=== PATIENT | female | born 1985 | race Caucasian/White ===

== ENCOUNTER 2016-09-28 15:05 | Emergency (ER) | payer SELFPAY ==
[2016-09-28 15:13] VITALS: TEMP 98.4; BMI 35.8
[2016-09-28 15:25] LABS: AUTOMATED BASOPHIL 0.5 % (0-2); AUTOMATED EOSINOPHIL 3.2 % (0-5); AUTOMATED LYMPH 29.5 % (17-44); AUTOMATED MONOCYTE 5.8 % (3-10); MPV 6.8 fL (7.4-10.4)
[2016-09-28 15:31] LABS: LEUKOCYTES/URINE NEG (NEGATIVE); NITRITE/URINE NEG (NEGATIVE); RBC/URINE 0-2 (0-5); URINE OCCULT BLOOD NEG (NEG/TRACE); WBC/URINE 0-2 (0-5)
[2016-09-28 15:41] LABS: BLOOD UREA NITROGEN 10 MG/DL (7-17); CALCIUM 9.8 MG/DL (8.4-10.2); CALCULATED OSMOLALITY 268 MOs/Kg (270-290); CHLORIDE 104 mEq/L (98-107); GLUCOSE 115 MG/DL (70-99); SODIUM LEVEL 139 mEq/L (137-146); TOTAL PROTEIN 7.7 G/DL (6.3-8.2)
[2016-09-28] MEDS ORDERED: ONDANSETRON HCL 4 MG/2 ML VIAL IV ONE (16:56)
[2016-09-28] MEDS ORDERED: MORPHINE 4 MG/ML INJECTION IV ONE (16:56)
[2016-09-28] MEDS ORDERED: NS 1,000 ML IV ONE (16:56)
--- NOTE | 2016-09-28 17:09 | EDPRACDOC ---
- General Information Chief Complaint: Abdominal Pain Stated Complaint: RT UPPER ABD PAIN NAUSEATED Time Seen by Provider: 09/28/16 16:28 Information Source: Patient Mode Of Arrival: Car Home Medications: Home Medications Aspirin/Acetaminophen/Caffeine [Excedrin Migraine Caplet] 1 - 2 tab PO Q6-8H PRN 09/28/16 Oxycodone HCl/Acetaminophen [Percocet 5-325 mg Tablet] 1 tab PO Q4-6H PRN #20 tab 09/28/16 Promethazine [Phenergan] 25 mg PO Q6-8H PRN #20 tab 09/28/16 Allergies/Adverse Reactions: Allergies Allergy/AdvReac Type Severity Reaction Status Date / Time azithromycin [From Zithromax] Allergy vomiting Verified 03/01/16 14:25 levofloxacin [From Levaquin] Allergy Irregular Verified 03/01/16 14:25 Heartbeat Penicillins Allergy Hives* Verified 03/01/16 14:25 - 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 SHE STATES THE PAIN RADIATES TO MID ABDOMEN AND TO HER BACK. STATES SHE HAS NOT EATEN ALOT IN THE PAST 24 HOURS. PT HAS NOT HAD ANY PAST ABDOMINAL SURGERIES. DENIES FEVER, CHILLS OR DIARRHEA Pain Location: Reports: RUQ Pain Context: Reports: Spontaneous Pain Severity: Moderate Pain Quality: Reports: Sharp, Stabbing Pain Radiation: Reports: Back Last Menstrual Period: Sep 21 : No Adult Abdominal History: Denies: Abdominal Surgery, Urolithiasis, Bowel Obstruction, Similar Pain (dx) Female Abdominal History: Denies: Abdominal Surgery, UTI, Ectopic, PID, Urolithiasis, Similar Pain (dx) Modifying Factors: improves with: Nothing Female Associated Signs & Symptoms: Reports: Nausea Oral Intake: Decreased Urinary Output: Normal ED Past Medical History - History Reviewed Yes Nurses notes reviewed and agree except as marked - Patient Medical History Psychological History: Denies: Depression Systemic History: Denies: Cancer Surgical History: Denies: Hysterectomy - Social Medical History Smoking Status: Heavy tobacco smoker (5 or more cigarettes/day or daily pipe/ cigar) EDM Review of Systems - Review of Systems ROS Negative Except as Marked: Yes All systems reviewed and were negative except as marked - Physical Exam Constitutional: Alert (Awake) Oriented to: Time, Person, Place Last recorded Vital Signs: Last Vital Signs Temp 98.4 F 09/28/16 15:10 Pulse 81 09/28/16 17:12 Resp 18 09/28/16 17:12 BP 115/70 09/28/16 17:12 Pulse Ox 97 09/28/16 17:12 Oxygen Pulse Oxygen Saturation 97 O2 Device Room Air Oxygen Flow Rate Fraction of Inspired Oxygen ( FIO2) - HEENT Head: Normal ( normocephalic) Eye Exam: Normal (PERRL, EOMI, Sclera white) Oropharynx: Normal (Pharynx:Moist without exudate,Gums-no swelling) Nose: No Symptoms Reported (septum midline) Neck: Normal (FROM, trachea at midline) HEENT Comment: PT HAS DIMPLING TO HER RIGHT BREAST, AT THE NINE O'CLOCK POSITION. GLANDULAR NODULE FELT, NON-PAINFUL, NON-MOBILE. - Respiratory/Cardiovascular Respiratory: Normal - CTA (BBS clear to auscultation without adventitious sounds ) Cardiovascular: Normal (RRR without murmur, gallop or rub) - GI Auscultation: Normal (NABS) Palpation: Normal (Soft,No rebound or guarding, non distended) Tenderness: Moderate, RUQ Beck's Sign: Negative Rectal Exam: Deferred - Musculoskeletal Back: Normal (Non-Tender) Extremities: Normal (Normal tone, Pulses 2+ No cyanosis or edema, FROM) - Integumentary Skin: Normal, Warm, Dry Lymphatics: Normal (no adenopathy) - Neurologic Memory Impaired: Normal Motor Function: Normal (Normal tone, Pulses 2+ No cyanosis or edema, FROM) Cranial Nerve: Normal (CN II-X11 intact sensation, strength 5/5) Cerebellar: Normal Mood Description: Normal Perception: Normal - Differential Diagnosis Cholecystitis, Cholelithiasis, Other - Results All Results Reviewed and Normal except as Highlighted below: Yes 09/28/16 15:11 09/28/16 15:11 WBC 8.5 xk/uL (3.8-10.8) 09/28/16 15:11 RBC 4.75 xM/uL (4.20-5.40) 09/28/16 15:11 Hgb 15.4 g/dL (12.0-16.0) 09/28/16 15:11 Hct 44.8 % (36-47) 09/28/16 15:11 MCV 95 fL (81-99) 09/28/16 15:11 MCH 32.4 pg (27-32) H 09/28/16 15:11 MCHC 34.3 g/dl (33-36) 09/28/16 15:11 RDW 13.0 % (11.5-14.5) 09/28/16 15:11 Plt Count 322 xk/uL (130-400) 09/28/16 15:11 MPV 6.8 fL (7.4-10.4) L 09/28/16 15:11 Neut % (Auto) 61.0 % (45-76) 09/28/16 15:11 Lymph % (Auto) 29.5 % (17-44) 09/28/16 15:11 [place] % (Auto) 5.8 % (3-10) 09/28/16 15:11 Eos % (Auto) 3.2 % (0-5) 09/28/16 15:11 Baso % (Auto) 0.5 % (0-2) 09/28/16 15:11 Absolute Neuts (auto) 5.19 xk/uL (1.7-8.2) 09/28/16 15:11 Absolute Lymphs (auto) 2.47 xk/uL (0.65-4.75) 09/28/16 15:11 Sodium 139 mEq/L (137-146) 09/28/16 15:11 Potassium 4.1 mEq/L (3.5-5.1) 09/28/16 15:11 Chloride 104 mEq/L (98-107) 09/28/16 15:11 Carbon Dioxide 23 mMOL/L (22-33) 09/28/16 15:11 Anion Gap 16 mEq/L (8-16) 09/28/16 15:11 BUN 10 MG/DL (7-17) 09/28/16 15:11 Creatinine 0.60 MG/DL (0.52-1.04) 09/28/16 15:11 Estimated GFR (MDRD) > 60 mL/min (>=60) 09/28/16 15:11 Glucose 115 MG/DL (70-99) H 09/28/16 15:11 Calculated Osmolality 268 MOs/Kg (270-290) L 09/28/16 15:11 Calcium 9.8 MG/DL (8.4-10.2) 09/28/16 15:11 Total Bilirubin 0.4 MG/DL (0.2-1.3) 09/28/16 15:11 AST 32 IU/L (14-36) 09/28/16 15:11 ALT 50 IU/L (9-52) 09/28/16 15:11 Alkaline Phosphatase 71 IU/L (38-126) 09/28/16 15:11 Total Protein 7.7 G/DL (6.3-8.2) 09/28/16 15:11 Albumin 4.5 G/DL (3.5-5.0) 09/28/16 15:11 Lipase 124 U/L (23-300) 09/28/16 15:11 Urine Color Yellow 09/28/16 15:13 Urine Clarity Sl hzy 09/28/16 15:13 Urine pH 5.0 (5.0-8.0) 09/28/16 15:13 Ur Specific [place] 1.010 (1.003-1.035) 09/28/16 15:13 Urine Protein Neg (NEG/TRACE) 09/28/16 15:13 Urine Glucose (UA) Neg (NEGATIVE) 09/28/16 15:13 Urine Ketones Neg (NEGATIVE) 09/28/16 15:13 Urine Occult Blood Neg (NEG/TRACE) 09/28/16 15:13 Urine Nitrite Neg (NEGATIVE) 09/28/16 15:13 Urine Bilirubin Neg (NEGATIVE) 09/28/16 15:13 Urine Urobilinogen <2.0 MG/DL (0-1) 09/28/16 15:13 Ur Leukocyte Esterase Neg (NEGATIVE) 09/28/16 15:13 Urine RBC 0-2 (0-5) 09/28/16 15:13 Urine WBC 0-2 (0-5) 09/28/16 15:13 Ur Epithelial Cells 3+ 09/28/16 15:13 Urine Bacteria Few (NEG/FEW) 09/28/16 15:13 Urine Mucus Mod (NEG/OCC) H 09/28/16 15:13 Urine Test Neg (NEGATIVE) 09/28/16 15:13 Lab Results 09/28/16 09/28/16 09/28/16 15:13 15:13 15:11 WBC 8.5 RBC 4.75 Hgb 15.4 Hct 44.8 MCV 95 MCH 32.4 H MCHC 34.3 RDW 13.0 Plt Count 322 MPV 6.8 L Neut % (Auto) 61.0 Lymph % (Auto) 29.5 [place] % (Auto) 5.8 Eos % (Auto) 3.2 Baso % (Auto) 0.5 Absolute Neuts (auto) 5.19 Absolute Lymphs (auto) 2.47 Sodium Potassium Chloride Carbon Dioxide Anion Gap BUN Creatinine Estimated GFR (MDRD) Glucose Calculated Osmolality Calcium Total Bilirubin AST ALT Alkaline Phosphatase Total Protein Albumin Lipase Urine Color Yellow Urine Clarity Sl hzy Urine pH 5.0 Ur Specific [place] 1.010 Urine Protein Neg Urine Glucose (UA) Neg Urine Ketones Neg Urine Occult Blood Neg Urine Nitrite Neg Urine Bilirubin Neg Urine Urobilinogen <2.0 Ur Leukocyte Esterase Neg Urine RBC 0-2 Urine WBC 0-2 Ur Epithelial Cells 3+ Urine Bacteria Few Urine Mucus Mod H Urine Test Neg 09/28/16 15:11 WBC RBC Hgb Hct MCV MCH MCHC RDW Plt Count MPV Neut % (Auto) Lymph % (Auto) [place] % (Auto) Eos % (Auto) Baso % (Auto) Absolute Neuts (auto) Absolute Lymphs (auto) Sodium 139 Potassium 4.1 Chloride 104 Carbon Dioxide 23 Anion Gap 16 BUN 10 Creatinine 0.60 Estimated GFR (MDRD) > 60 Glucose 115 H Calculated Osmolality 268 L Calcium 9.8 Total Bilirubin 0.4 AST 32 ALT 50 Alkaline Phosphatase 71 Total Protein 7.7 Albumin 4.5 Lipase 124 Urine Color Urine Clarity Urine pH Ur Specific [place] Urine Protein Urine Glucose (UA) Urine Ketones Urine Occult Blood Urine Nitrite Urine Bilirubin Urine Urobilinogen Ur Leukocyte Esterase Urine RBC Urine WBC Ur Epithelial Cells Urine Bacteria Urine Mucus Urine Test Decision Time to Discharge: 18:03 - Departure Disposition: Home Condition: Stable Final Diagnosis: Breast mass, right, Abdominal pain Instructions: Acute Abdominal Pain (ED), Breast Mass (ED), Abdominal Pain in Women Education/Counseling Given To: Patient Education/Counseling Given Regarding: Diagnosis, Treatment, Prognosis, Follow Up Referrals: Zoran Parry MD [Primary Care Provider] [facility] Prescriptions: Oxycodone HCl/Acetaminophen [Percocet 5-325 mg Tablet] 1 tab PO Q4-6H PRN #20 tab PRN Reason: Pain Promethazine [Phenergan] 25 mg PO Q6-8H PRN #20 tab PRN Reason: Nausea/Vomiting Additional Instructions: Drink sips of Gatorade every 2-3 minutes while awake. Do NOT drink large volumes of fluid at once. If you vomit, take the nausea-vomiting medicine prescribed, wait ~ 30 minutes, and restart the sipping process. Return to the Emergency Department if you think you are getting dehydrated, have persistent abdominal pain that is unrelenting, have worse or different symptoms, or any concerns. PLEASE MAKE A FOLLOW UP APPOINTMENT WITH PCP. RETURN TO THE ED FOR WORSENING SYMPTOMS OR CONCERNS
[2016-09-28] MEDS ORDERED: IBUPROFEN 800 MG TAB PO ONE (17:20)
--- NOTE | 2016-09-28 17:53 | DIRPT ---
CLINICAL DATA: Right upper quadrant pain for 2 days. EXAM: US ABDOMEN LIMITED - RIGHT UPPER QUADRANT COMPARISON: None. FINDINGS: Gallbladder: No gallstones or wall thickening visualized. No sonographic Beck sign noted by flyer maker. Common bile duct: Diameter: 2 mm, within normal limits. Liver: No focal lesion identified. Within normal limits in parenchymal echogenicity. IMPRESSION: Negative. Electronically Signed By: Kiet Wynn M.D. On: 09/28/2016 17:50
[2016-09-28 18:28] VITALS: BP 104/54; PULSE 85
== END 2016-09-28 18:56 | disposition home or self-care (01) ==
LOC: ED 15:05
DX: R10.9 Unspecified abdominal pain (principal); N63 Unspecified lump in breast
CPT/HCPCS: 36415; 76705; 80053; 81001; 81025; 83690; 85025; 96361; 96374; 99284; J2405; J3490; J2270